=== PATIENT | female | born 2000 | race American Indian/Alaskan Native ===

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

== ENCOUNTER 2021-04-07 00:13 | Emergency (ER) | payer MEDICAID ==
[2021-04-07] MEDS ORDERED: Ondansetron 4 MG Tab.DIS PO ONE (00:14)
[2021-04-07] MEDS ORDERED: Sodium Chloride 0.9% 1,000 ML IV ONE (00:20)
[2021-04-07] MEDS ORDERED: Ondansetron 4 MG/2 ML SDV IVPUSH ONE (00:20)
[2021-04-07 00:52] VITALS: BP 130/109; PULSE 98
[2021-04-07 01:38] LABS: ANION GAP 14.5 mEq/L (7-13); CHLORIDE,CL 105 mmol/L (98-107); SODIUM,NA 141 mmol/L (136-145)
--- NOTE | 2021-04-07 02:24 | EDM.PDOC ---
ED HPI GENERAL MEDICAL PROBLEM - General Chief Complaint: Gastrointestinal Problem Stated Complaint: POSSIBLE FOOD POISONING Time Seen by Provider: 04/07/21 01:00 - History of Present Illness INITIAL COMMENTS - FREE TEXT/NARRATIVE: ED with c/o emesis x 1 at 830pm and one small CDL INSTRUCTOR. No fever or chills. No c/o urinary sx. LMP one year ago. menses irregular. Abdomen Pain Score (Numeric/FACES): 2 - Related Data Allergies Allergy/AdvReac Type Severity Reaction Status Date / Time No Known Allergies Allergy Verified 11/30/19 03:27 Home Meds: Home Meds No122/Iron/Folic Acid [ Multi Tablet] 1 tab PO DAILY 09/25/19 [History] Famotidine [Pepcid] 20 mg PO DAILY 11/30/19 [History] Acetaminophen [Tylenol] 650 mg PO Q4H PRN tablet 12/03/19 [Rx] Acetaminophen/oxyCODONE [Percocet 325-5 MG] 1 tab PO Q4H PRN tablet 12/03/19 [Rx] Ferrous Sulfate 325 mg PO WITHBREAKFAST tablet 12/03/19 [Rx] Ibuprofen [Motrin] 800 mg PO Q8H PRN tablet 12/03/19 [Rx] Past Medical History - Past Health History Medical/Surgical History: Denies Medical/Surgical History HEENT History: Reports: None Cardiovascular History: Reports: None Respiratory History: Reports: None Gastrointestinal History: Reports: GERD Genitourinary History: Reports: UTI, Recurrent [employer] SPECIALIST History: Reports: Musculoskeletal History: Reports: None Neurological History: Reports: None Psychiatric History: Reports: None Endocrine/Metabolic History: Reports: None Hematologic History: Reports: None Immunologic History: Reports: None Oncologic (Cancer) History: Reports: None Dermatologic History: Reports: None - Infectious Disease History Infectious Disease History: Reports: None - Past Surgical History Head Surgeries/Procedures: Reports: None Female Surgical History: Reports: None Social & Family History - Family History Family Medical History: No Pertinent Family History - Tobacco Use Tobacco Use Status *Q: Never Tobacco User Second Hand Smoke Exposure: No - Caffeine Use Caffeine Use: Reports: Energy Drinks - Recreational Drug Use Recreational Drug Use: No ED ROS GENERAL - Review of Systems Review Of Systems: Comprehensive ROS is negative, except as noted in HPI. ED EXAM, GI/ABD - Physical Exam Exam: See Below Exam Limited By: No Limitations General Appearance: Alert, No Apparent Distress, Obese Eyes: Bilateral: EOMI Ears: Normal External Exam Nose: Normal Inspection Throat/Mouth: Normal Inspection, Normal Voice, No Airway Compromise Head: Atraumatic, Normocephalic Neck: Normal Inspection, Full Range of Motion Respiratory/Chest: No Respiratory Distress, Lungs Clear, Normal Breath Sounds Cardiovascular: Regular Rate, Rhythm GI/Abdominal Exam: Normal Bowel Sounds, Soft, No Distention. No: Tender Back Exam: Normal Inspection, Full Range of Motion Extremities: Normal Inspection Neurological: Alert, Oriented, Normal Cognition Skin Exam: Warm, Dry, Intact, Normal Color Course - Vital Signs Last Recorded V/S: Last Vital Signs Temp 97.9 F 04/07/21 00:49 Pulse 98 04/07/21 00:49 Resp 18 04/07/21 00:49 BP 130/109 H 04/07/21 00:49 Pulse Ox 98 04/07/21 00:49 - Orders/Labs/Meds Labs: Laboratory Tests 04/07/21 04/07/21 04/07/21 Range/Units 01:12 01:12 01:12 WBC 13.7 H (5.0-10.0) 10^3/uL RBC 4.70 (4.2-5.4) 10^6/uL Hgb 13.9 D (12.0-16.0) g/dL Hct 42.1 (37.0-47.0) % MCV 89.6 (80-100) fL MCH 29.6 (27.0-34.0) pg MCHC 33.0 (33.0-35.0) g/dL Plt Count 332 D (150-450) 10^3/uL Neut % (Auto) 57.3 (42.2-75.2) % Lymph % (Auto) 32.7 (20.5-50.1) % [place] % (Auto) 8.2 H (2-8) % Eos % (Auto) 1.5 (1.0-3.0) % Baso % (Auto) 0.3 (0.0-1.0) % Sodium 141 (136-145) mmol/L Potassium 3.5 (3.5-5.1) mmol/L Chloride 105 (98-107) mmol/L Carbon Dioxide 25 (21-32) mmol/L Anion Gap 14.5 H (7-13) mEq/L BUN 10 (7-18) mg/dL Creatinine 0.81 (0.55-1.02) mg/dL Est Cr Clr Drug Dosing 88.35 mL/min Estimated GFR (MDRD) > 60 BUN/Creatinine Ratio 12.3 (No establ ref range) Glucose 96 (70-99) mg/dL Lactic Acid 0.9 (0.4-2.0) mmol/L Calcium 8.5 (8.5-10.1) mg/dL Total Bilirubin 0.7 (0.2-1.0) mg/dL AST 27 (15-37) U/L ALT 55 (14-59) U/L Alkaline Phosphatase 142 H (46-116) U/L Total Protein 7.4 (6.4-8.2) g/dL Albumin 3.4 (3.4-5.0) g/dL Globulin 4.0 Albumin/Globulin Ratio 0.9 Amylase 26 (25-115) U/L Lipase 37 L (73-393) U/L HCG, Qual 04/07/ Range/Units 01:12 WBC (5.0-10.0) 10^3/uL RBC (4.2-5.4) 10^6/uL Hgb (12.0-16.0) g/dL Hct (37.0-47.0) % MCV (80-100) fL MCH (27.0-34.0) pg MCHC (33.0-35.0) g/dL Plt Count (150-450) 10^3/uL Neut % (Auto) (42.2-75.2) % Lymph % (Auto) (20.5-50.1) % [place] % (Auto) (2-8) % Eos % (Auto) (1.0-3.0) % Baso % (Auto) (0.0-1.0) % Sodium (136-145) mmol/L Potassium (3.5-5.1) mmol/L Chloride (98-107) mmol/L Carbon Dioxide (21-32) mmol/L Anion Gap (7-13) mEq/L BUN (7-18) mg/dL Creatinine (0.55-1.02) mg/dL Est Cr Clr Drug Dosing mL/min Estimated GFR (MDRD) BUN/Creatinine Ratio (No establ ref range) Glucose (70-99) mg/dL Lactic Acid (0.4-2.0) mmol/L Calcium (8.5-10.1) mg/dL Total Bilirubin (0.2-1.0) mg/dL AST (15-37) U/L ALT (14-59) U/L Alkaline Phosphatase (46-116) U/L Total Protein (6.4-8.2) g/dL Albumin (3.4-5.0) g/dL Globulin Albumin/Globulin Ratio Amylase (25-115) U/L Lipase (73-393) U/L HCG, Qual Negative Meds: Medications Discontinued Medications Generic Name Dose Route Start Last Admin Trade Name Lawrenceq PRN Reason Stop Dose Admin Sodium Chloride 1,000 mls @ 999 mls/hr 04/07/21 00:20 04/07/21 01:14 Normal Saline IV 04/07/21 01:20 999 mls/hr .BOLUS ONE Administration Ondansetron HCl 4 mg 04/07/21 00:20 04/07/21 01:13 Ondansetron 4 Mg/2 Ml Sdv IVPUSH 04/07/21 00:21 4 mg ONETIME ONE Administration Departure - Departure Time of Disposition: :21 Disposition: Home, Self-Care 01 Condition: Good Clinical Impression: Vomiting Qualifiers: Vomiting type: bilious vomiting Nausea presence: with nausea Qualified Code(s): R11.14 - Bilious vomiting - Discharge Information *PRESCRIPTION DRUG MONITORING PROGRAM REVIEWED*: No *COPY OF PRESCRIPTION DRUG MONITORING REPORT IN PATIENT MARICARMEN: No Instructions: Nausea and Vomiting, Adult, [id number] Additional Instructions: zofran 4 mg ODT one every 4 hours as needed for vomiting start liquids small amount if tolerating, advance slowly, bland diet low fat avoid caffeine, spicy foods Sepsis Event Note (ED) - Evaluation Sepsis Screening Result: No Definite Risk - Focused Exam Vital Signs: Vital Signs Temp Pulse Resp BP Pulse Ox 04/07/21 00:49 97.9 F 98 18 130/109 H 98
[2021-04-07] MEDS ORDERED: Ondansetron 4 MG Tab.DIS ONE (02:29)
== END 2021-04-07 02:35 | disposition home or self-care (01) ==
LOC: DL.ED 00:13
DX: R11.14 Bilious vomiting (principal); K21.9 Gastro-esophageal reflux disease without esophagitis; Z79.899 Other long term (current) drug therapy
CPT/HCPCS: 36415; 80053; 82150; 83605; 83690; 84703; 85025; 96374; 99284; A9270; J2405; J7030

== ENCOUNTER 2021-10-08 01:12 | Emergency (ER) | payer MEDICAID ==
[2021-10-08 03:22] VITALS: BP 142/129; PULSE 102
[2021-10-08 04:41] LABS: CORONAVIRUS COVID-19 NAA NEGATIVE (NEGATIVE)
[2021-10-08 06:05] LABS: ANION GAP 19.6 mEq/L (7-13)
[2021-10-08] MEDS ORDERED: GI Cocktail Oral Solution 30 ML PO ONE (06:17)
[2021-10-08 06:40] LABS: CHLORIDE,CL 100 mmol/L (98-107); SODIUM,NA 137 mmol/L (136-145)
== END 2021-10-08 06:53 | disposition home or self-care (01) ==
LOC: DL.ED 01:12
DX: K21.9 Gastro-esophageal reflux disease without esophagitis (principal); R74.8 Abnormal levels of other serum enzymes; Z72.0 Tobacco use; Z20.822 Contact with and (suspected) exposure to COVID-19
CPT/HCPCS: 0240U; 36415; 71045; 80053; 82150; 83690; 84484; 85025; 93005; 99284; A9270

== ENCOUNTER 2022-08-02 17:04 | Emergency (ER) | payer MEDICAID ==
[2022-08-02 17:27] VITALS: BP 107/85; PULSE 99
== END 2022-08-02 18:14 | disposition home or self-care (01) ==
LOC: DL.ED 17:04
DX: S83.005A Unspecified dislocation of left patella, initial encounter (principal); X50.1XXA Overexertion from prolonged static or awkward postures, initial encounter
CPT/HCPCS: 73562-LT; 99283

== ENCOUNTER 2024-01-11 14:01 | Emergency (ER) | payer MEDICAID ==
[2024-01-11 15:46] LABS: CORONAVIRUS COVID-19 NAA NEGATIVE (NEGATIVE); INFLUENZA A NAA NEGATIVE (NEGATIVE); INFLUENZA B NAA POSITIVE (NEGATIVE)
[2024-01-11 15:51] VITALS: BP 113/67; PULSE 100
== END 2024-01-11 15:52 | disposition home or self-care (01) ==
LOC: DL.ED 14:01
DX: J10.1 Influenza due to other identified influenza virus with other respiratory manifestations (principal)
CPT/HCPCS: 0240U; 71046; 99283; 99282

== ENCOUNTER 2024-08-16 14:01 | Emergency (ER) | payer MEDICAID ==
[2024-08-16 14:16] VITALS: BP 137/75; PULSE 96
[2024-08-16 14:21] LABS: APPEARANCE,URINE SLIGHTLY CLOUDY (CLEAR); BILIRUBIN,URINE NEGATIVE (NEGATIVE); COLOR,URINE YELLOW (YELLOW); GLUCOSE,URINE NEGATIVE (NEGATIVE); KETONES,URINE NEGATIVE (NEGATIVE); LEUKOCYTE ESTERASE,URINE SMALL (NEGATIVE); NITRITE,URINE NEGATIVE (NEGATIVE); OCCULT BLOOD,URINE SMALL (NEGATIVE); PROTEIN,URINE 30 (NEGATIVE); UROBILINOGEN,URINE 0.2 mg/dL (0.2-1.0)
[2024-08-16 14:29] LABS: BACTERIA,URINE MANY /HPF (0-FEW/HPF); EPITHELIAL CELLS,URINE MODERATE /HPF (NOT SEEN); MUCUS,URINE FEW /LPF (NOT SEEN); RBC,URINE 0-5 /HPF (0-5)
[2024-08-16] MEDS: Cephalexin 500 MG Cap PO ONE (14:47)
[2024-08-16] MEDS: Take Home: Cephalexin 500 MG Cap, 6 Cap Pack PO ONE (14:47)
[2024-08-19 12:47] LABS: C.TRACHOMATIS BY TMA Positive (Negative); M GENITALIUM Positive (Negative); M GENITALIUM SOURCE Urine; N.GONORRHOEAE BY TMA Negative (Negative); SOURCE Urine
== END 2024-08-16 15:01 | disposition home or self-care (01) ==
LOC: DL.ED 14:01
DX: N39.0 Urinary tract infection, site not specified (principal); L73.9 Follicular disorder, unspecified
CPT/HCPCS: 81001; 87086; 87491; 87563; 87591; 99283; A9270

== ENCOUNTER 2025-07-02 16:42 | Emergency (ER) | payer SELFPAY ==
[2025-07-02] MEDS ORDERED: Sodium Chloride 0.9% 10 ML Syringe FLUSH PRN (16:50)
[2025-07-02 17:00] VITALS: BP 116/68; PULSE 98
[2025-07-02 17:06] LABS: BASOPHILS PERCENT AUTO 0.2 % (0.0-1.0); EOSINOPHILS PERCENT AUTO 0.1 % (1.0-3.0); LYMPHOCYTES PERCENT AUTO 20.5 % (20.5-50.1); MONOCYTES PERCENT AUTO 7.7 % (2-8); NEUTROPHILS PERCENT AUTO 71.5 % (42.2-75.2); PLATELET COUNT,PLT 301 10^3/uL (150-450); RED BLOOD CELL COUNT 4.90 10^6/uL (4.2-5.4); WHITE BLOOD CELL COUNT,WBC 11.9 10^3/uL (5.0-10.0)
[2025-07-02 17:31] LABS: A/G RATIO 0.7; ALANINE AMINOTRANSFERASE,ALT 80.0 U/L (14-59); ASPARTATE AMNIOTRANSFERASE,AST 36.0 U/L (15-37); BILIRUBIN TOTAL 0.9 mg/dL (0.2-1.0); BLOOD UREA NITROGEN,BUN 10.0 mg/dL (7-18); CARBON DIOXIDE,CO2 24.0 mmol/L (21-32); CHLORIDE,CL 103.0 mmol/L (98-107); CREATININE 0.73 mg/dL (0.55-1.02); EST CRCL DRUG DOSING (CG) 94.79 mL/min; ESTIMATED GFR 118.0 mL/min (>=60); GLUCOSE RANDOM 102.0 mg/dL (70-99); POTASSIUM,K 3.3 mmol/L (3.5-5.1); PROTEIN TOTAL,TP 8.4 g/dL (6.4-8.2); SODIUM,NA 139.0 mmol/L (136-145)
[2025-07-02 17:36] LABS: INR 1.0 (0.9-1.2)
[2025-07-02] MEDS: Iopamidol 755 Mg/ML 100 ML Bottle IVPUSH ONE (19:17)
[2025-07-02] MEDS ORDERED: Potassium Chloride 10 MEQ Tab.ER PO ONE (19:48)
== END 2025-07-02 20:03 | disposition home or self-care (01) ==
LOC: DL.ED 16:42
DX: R07.2 Precordial pain (principal)
CPT/HCPCS: 36415; 71275; 80053; 83735; 84484; 85025; 85379; 85610; 86140; 99283; 99285; Q9967

== ENCOUNTER 2025-07-23 00:12 | Emergency (ER) | payer SELFPAY ==
[2025-07-23] MEDS ORDERED: Sodium Chloride 0.9% 10 ML Syringe FLUSH PRN (00:34)
[2025-07-23 00:46] LABS: BASOPHILS PERCENT AUTO 0.6 % (0.0-1.0); EOSINOPHILS PERCENT AUTO 1.4 % (1.0-3.0); LYMPHOCYTES PERCENT AUTO 25.6 % (20.5-50.1); MONOCYTES PERCENT AUTO 9.1 % (2-8); NEUTROPHILS PERCENT AUTO 63.3 % (42.2-75.2); PLATELET COUNT,PLT 369 10^3/uL (150-450); RED BLOOD CELL COUNT 4.72 10^6/uL (4.2-5.4); WHITE BLOOD CELL COUNT,WBC 8.5 10^3/uL (5.0-10.0)
[2025-07-23] MEDS: Ondansetron 4 MG/2 ML SDV IVPUSH ONE (00:47)
[2025-07-23] MEDS: Ketorolac 30 MG/ML SDV IVPUSH ONE (00:49)
[2025-07-23 01:08] LABS: BLOOD UREA NITROGEN,BUN 7 mg/dL (7-18); CARBON DIOXIDE,CO2 27 mmol/L (21-32); CHLORIDE,CL 105 mmol/L (98-107); CREATININE 0.59 mg/dL (0.55-1.02); EST CRCL DRUG DOSING (CG) 117.29 mL/min; GLUCOSE RANDOM 99 mg/dL (70-99); POTASSIUM,K 3.6 mmol/L (3.5-5.1); PROTEIN TOTAL,TP 8.2 g/dL (6.4-8.2); SODIUM,NA 143 mmol/L (136-145)
[2025-07-23 01:09] LABS: A/G RATIO 0.7; ALANINE AMINOTRANSFERASE,ALT 851 U/L (14-59); ASPARTATE AMNIOTRANSFERASE,AST 892 U/L (15-37); BILIRUBIN TOTAL 3.1 mg/dL (0.2-1.0)
[2025-07-23 01:15] LABS: ESTIMATED GFR 130 mL/min (>=60); ETHANOL BLOOD MEDICAL < 3 mg/dL (0)
[2025-07-23 02:01] VITALS: BP 148/90; PULSE 71
[2025-07-26 11:47] LABS: HAV AB IGM Negative (Negative); HBC IGM Negative (Negative)
[2025-07-26 16:47] LABS: HCV AB BY CIA INTERP Negative (Negative); HEPC AB BY CIA INDEX 0.03 IV
== END 2025-07-23 01:58 | disposition home or self-care (01) ==
LOC: DL.ED 00:12
DX: K52.9 Noninfective gastroenteritis and colitis, unspecified (principal); R79.89 Other specified abnormal findings of blood chemistry; Z87.440 Personal history of urinary (tract) infections
CPT/HCPCS: 36415; 80053; 80307; 83605; 83690; 85025; 86705; 86709; 86803; 96361; 96374; 96375; 99284; J1885; J2405; J7030

== ENCOUNTER 2025-08-09 12:19 | Emergency (ER) | payer SELFPAY ==
[2025-08-09] MEDS ORDERED: Sodium Chloride 0.9% 10 ML Syringe FLUSH PRN (12:38)
[2025-08-09] MEDS: Iopamidol 612 MG/ML 100 ML Bottle IVPUSH ONE (12:48)
[2025-08-09] MEDS: Ketorolac 30 MG/ML SDV IVPUSH ONE (12:52)
[2025-08-09] MEDS: Ondansetron 4 MG/2 ML SDV IVPUSH ONE (12:52)
[2025-08-09 13:00] LABS: BASOPHILS PERCENT AUTO 0.4 % (0.0-1.0); EOSINOPHILS PERCENT AUTO 2.7 % (1.0-3.0); LYMPHOCYTES PERCENT AUTO 28.3 % (20.5-50.1); MONOCYTES PERCENT AUTO 7.6 % (2-8); NEUTROPHILS PERCENT AUTO 61.0 % (42.2-75.2); PLATELET COUNT,PLT 412 10^3/uL (150-450); RED BLOOD CELL COUNT 4.64 10^6/uL (4.2-5.4); WHITE BLOOD CELL COUNT,WBC 9.0 10^3/uL (5.0-10.0)
[2025-08-09 13:15] LABS: HCG QUALITATIVE,SERUM NEGATIVE (NEGATIVE)
[2025-08-09 13:20] LABS: ALANINE AMINOTRANSFERASE,ALT 442 U/L (14-59); ASPARTATE AMNIOTRANSFERASE,AST 335 U/L (15-37); BILIRUBIN TOTAL 1.6 mg/dL (0.2-1.0); BLOOD UREA NITROGEN,BUN 11 mg/dL (7-18); CARBON DIOXIDE,CO2 24 mmol/L (21-32); CHLORIDE,CL 105 mmol/L (98-107); CREATININE 0.61 mg/dL (0.55-1.02); EST CRCL DRUG DOSING (CG) 134.28 mL/min; GLUCOSE RANDOM 115 mg/dL (70-99); POTASSIUM,K 4.0 mmol/L (3.5-5.1); PROTEIN TOTAL,TP 7.7 g/dL (6.4-8.2); SODIUM,NA 140 mmol/L (136-145)
[2025-08-09 13:23] LABS: LACTIC ACID 0.9 mmol/L (0.4-2.0)
[2025-08-09 13:26] LABS: A/G RATIO 0.75; ESTIMATED GFR 129 mL/min (>=60)
[2025-08-09 16:44] VITALS: BP 136/87; PULSE 67
== END 2025-08-09 17:11 ==
LOC: DL.ED 12:19
DX: R79.89 Other specified abnormal findings of blood chemistry (principal); R10.13 Epigastric pain; E80.7 Disorder of bilirubin metabolism, unspecified; E11.9 Type 2 diabetes mellitus without complications; E66.9 Obesity, unspecified; Z68.42 Body mass index [BMI] 45.0-49.9, adult
CPT/HCPCS: 36415; 74177; 80053; 83605; 83690; 83735; 84703; 85025; 86140; 96374; 96375; 99285; 99285-25; J1885; J2405; Q9967